=== PATIENT | female | born 1940 | race Caucasian/White ===

== ENCOUNTER 2016-11-30 16:43 | Emergency (ER) | payer SELFPAY ==
[2016-11-30 17:08] LABS: APPEARANCE CLEAR (CLEAR); BACTERIA FEW /hpf (NONE SEEN); BILIRUBIN NEGATIVE (NEGATIVE); COLOR YELLOW (YELLOW); EPITHELIAL CELLS 0-5 /hpf (0-5); GLUCOSE NEGATIVE (NEGATIVE); KETONE NEGATIVE (NEGATIVE); NITRITE NEGATIVE (NEGATIVE); PROTEIN NEGATIVE (NEGATIVE); RED CELLS - URINE 0-5 /hpf (0-5); SPECIFIC GRAVITY 1.015 (1.005-1.020); UROBILINOGEN NORMAL (NORMAL)
[2016-11-30 17:10] LABS: BASOPHILS 0.3 % (0-2); EOSINOPHILS 4.8 % (0-7); HEMATOCRIT 30.9 % (36.0-48.0); HEMOGLOBIN 10.5 g/dL (12-16); IMMATURE GRANULOCYTES 0.1 % (0-5); LYMPHOCYTES 15.2 % (15-50); MCH 30.3 pg (26.0-34.0); MCV 89.3 fL (80.0-100.0); MEAN PLATELET VOLUME 8.4 fL (7.4-10.4); MONOCYTES 8.9 % (2-11); NEUTROPHILS 70.7 % (40-80); PLATELET COUNT 235 10x3/uL (130-400); RBC 3.46 10x6/uL (4.00-5.40); RDW 13.9 % (11.5-14.5); WBC 7.1 10x3/uL (4.8-10.8)
[2016-11-30 17:21] LABS: UDS - AMPHET NEGATIVE QUAL (NEGATIVE); UDS - BARB NEGATIVE QUAL (NEGATIVE); UDS - BENZO NEGATIVE QUAL (NEGATIVE); UDS - COCAINE NEGATIVE QUAL (NEGATIVE); UDS - OPIATE NEGATIVE QUAL (NEGATIVE); UDS - PCP NEGATIVE QUAL (NEGATIVE); UDS - THC NEGATIVE QUAL (NEGATIVE)
[2016-11-30 17:24] LABS: ALBUMIN 3.6 g/dL (3.4-5.0); BILIRUBIN - TOTAL 0.31 mg/dL (0.2-1.3); CALCIUM 8.6 mg/dL (8.5-10.1); CARBON DIOXIDE 24.8 mmol/L (21.0-32.0); CREATININE - SERUM 1.9 mg/dL (0.6-1.3); POTASSIUM - SERUM 3.8 mmol/L (3.5-5.1); PROTEIN - SERUM 6.9 g/dL (6.4-8.2)
[2016-11-30 19:34] LABS: APTT 28.4 SECONDS (22.8-39.4); INR 0.99 (0.85-1.17); PROTIME 12.9 SECONDS (11.6-15.0)
== END 2016-11-30 20:40 | disposition home or self-care (01) ==
LOC: D.ER 16:43
PROVIDERS: Emergency Medicine; Physician Assistant Medical
DX: I99.8 Other disorder of circulatory system (principal); N39.0 Urinary tract infection, site not specified; F17.200 Nicotine dependence, unspecified, uncomplicated